=== PATIENT | male | born 1945 | race Caucasian/White ===

== ENCOUNTER 2024-09-07 13:45 | Observation (INO) ==
--- NOTE | 2024-09-07 14:34 | EKG ---
Test Reason : triage room Blood Pressure : */* mmHG Vent. Rate : 80 BPM Atrial Rate : * BPM P-R Int : * ms QRS Dur : 108 ms QT Int : 392 ms P-R-T Axes : * -36 -19 degrees QTc Int : 452 ms Atrial fibrillation Left axis deviation Incomplete right bundle branch block Minimal voltage criteria for LVH, may be normal variant ( R in aVL ) Inferior infarct (cited on or before 05-SEP-2024) Anterior infarct (cited on or before 05-SEP-2024) Abnormal ECG When compared with ECG of 05-SEP-2024 09:51, No significant change was found Confirmed by Papa Monaco MD ([id number]) on 09/08/2024 7:47:03 AM Referred By: Confirmed By: Papa Monaco MD
--- NOTE | 2024-09-07 15:32 | RAD ---
EXAM:CHEST, 1 VIEWHISTORY:DYSPNEA;COMPARISON:April 02, 2020TECHNIQUE:Single frontal viewFINDINGS:The lungs are hypoinflated. There are no consolidating pulmonary infiltrates or pleural fluid collections. There is no radiographic evidence of pneumothorax. Heart size and mediastinal contours are grossly stable accounting for differences in technique and inspiratory effort. The aorta maintains a tortuous configuration.IMPRESSION:Low lung volumes with no consolidating infiltratesTHIS IS AN ELECTRONICALLY VERIFIED FINAL REPORT09/07/2024 3:28 PM - Electronically signed by Sarabjit Henao MD
[2024-09-07 15:50] LABS: BASOPHILS # (AUTO) 0.1 X10^3/uL (0.0-0.1); BASOPHILS % (AUTO) 1.2 % (0.2-1.0); EOSINOPHILS # (AUTO) 0.3 x10^3/uL (0.0-0.2); EOSINOPHILS % (AUTO) 4.3 % (0.9-2.9); HEMATOCRIT 46.9 % (42.0-54.0); HEMOGLOBIN 16.1 g/dL (13.5-18.0); LYMPHOCYTES # (AUTO) 2.2 X10^3/uL (1.3-2.9); LYMPHOCYTES % (AUTO) 34.3 % (21.0-51.0); MEAN CORPUSCULAR HEMOGLOBIN 35.5 pg (27.0-34.0); MEAN CORPUSCULAR HGB CONC 34.4 g/dL (33.0-35.0); MEAN CORPUSCULAR VOLUME 103.2 fL (80.0-100.0); MEAN PLATELET VOLUME 9.6 fL (7.4-11.0); MONOCYTES # (AUTO) 0.7 x10^3/uL (0.3-0.8); MONOCYTES % (AUTO) 11.4 % (0.0-13.0); NEUTROPHILS # (AUTO) 3.1 x10^3/uL (2.2-4.8); NEUTROPHILS % (AUTO) 48.8 % (42.0-75.0); PLATELET COUNT 208 X10^3/uL (150.0-450.0); RED BLOOD COUNT 4.55 X10^6/uL (4.7-6.0); RED CELL DISTRIBUTION WIDTH 13.3 % (11.6-16.5); WHITE BLOOD COUNT 6.3 X10^3/uL (3.6-10.0)
[2024-09-07 16:00] LABS: ALANINE AMINOTRANSFERASE 34 Units/L (12-78); ALBUMIN 3.7 g/dL (3.4-5.0); ALKALINE PHOSPHATASE 37 Units/L (46-116); ASPARTATE AMINO TRANSFERASE 26 Units/L (15-37); BLOOD UREA NITROGEN 21 mg/dL (7-18); CALCIUM 8.8 mg/dL (8.5-10.1); CARBON DIOXIDE 24.9 mmol/L (21-32); CHLORIDE 107 mmol/L (98-107); CREATININE 1.07 mg/dL (0.70-1.30); GLUCOSE 110 mg/dL (65-99); SODIUM 141 mmol/L (136-145); TOTAL PROTEIN 6.8 g/dL (6.4-8.2); eGFR NON BLACK RACES > 60 (>60)
--- NOTE | 2024-09-07 18:16 | DR.GENAD ---
HPI Time Seen Time Seen by Provider: 09/07/24 14:17 PCP Primary Care Physician: raul corbin Complaint/Symptoms Chief Complaint Doctors Comments: 79 yo M, hx HTN, GERD, prior GI bleed, no cardiac hx, had been cleared for lumbar surgery, went to the surgery clinic today, was told to go to the local ER for new-onset afib. Pt unaware that he was in any type of arrhythmia. States he does not feel any different than baseline. Denies any chest pain or dyspnea. Denies other complaints. Chief Complaint:: i was in [place] having back surgery when they discovered that he was having a fib. pt was given choice to see medical care there or to come closer home. pt denies any chest discomfort, or cardiac symptoms. he does have occ sob but that improves rather quickly Self Treatment fo Chief Complaint: came here for services COVID-19 Coronavirus risk:travel/contact w/high risk person: No Has patient experienced Coronavirus symptoms: No Source History Provided: Patient and Family Member Mode of Arrival Mode of Arrival: Ambulatory Timing Onset of Chief Complaint: 09/07/24 PMH PMH Past Medical History: Yes Past Medical History: GERD, Hypertension and Kidney Stones Past Medical History Comment: constipation and gi bleeds Past Surgical History: Yes Surgical History: Abdominal Surgery and Ortho Surgery Family History History of Family Medical Conditions: Yes Family Medical History: Diabetes Mellitus and [place] Family Medical History Comment: colostomy Social History Does patient currently use any type of tobacco product: No Alcohol Use: None Do you use any recreational Drugs:: No Lives With: Alone Lives Where: Home Travel Risk Coronavirus risk:travel/contact w/high risk person: No Has patient experienced Coronavirus symptoms: No Infectious screening In the last 2 months have you had wt loss of >10#?: NO Have you had fever, night sweats or hemotysis?: No Have you traveled outside the country in the last 6 months?: No Travel History Location: has a farm in [place] that came back from in june Isolation: Standard ROS Review of Systems All Other Systems: Reviewed and Negative PE Vital Signs Vitals: Vital Signs Temperature 97.6 F Pulse Rate 67 Pulse Rate 67 Pulse Rate 67 Pulse Rate 68 Pulse Rate 74 Pulse Rate 68 Pulse Rate 79 Pulse Rate 72 Pulse Rate 78 Pulse Rate 78 Pulse Rate 70 Respiratory Rate 17 Respiratory Rate 19 Respiratory Rate 27 Respiratory Rate 30 Respiratory Rate 26 Respiratory Rate 29 Respiratory Rate 32 Respiratory Rate 28 Respiratory Rate 24 Respiratory Rate 24 Respiratory Rate 16 Blood Pressure 150/87 Blood Pressure 136/82 Blood Pressure 128/86 Blood Pressure 118/86 Blood Pressure 132/88 O2 Sat by Pulse Oximetry 95 O2 Sat by Pulse Oximetry 95 O2 Sat by Pulse Oximetry 96 O2 Sat by Pulse Oximetry 95 O2 Sat by Pulse Oximetry 95 O2 Sat by Pulse Oximetry 96 O2 Sat by Pulse Oximetry 96 O2 Sat by Pulse Oximetry 94 O2 Sat by Pulse Oximetry 97 O2 Sat by Pulse Oximetry 96 O2 Sat by Pulse Oximetry 95 General Limitations: No Limitations General Appearance: Alert and In No Apparent Distress Head Head Exam: Normal Inspection Eyes Eye exam: Normal Appearance ENT ENT Exam: Normal Exam External Ear Exam: Normal External Inspection TM/Canal Exam: Bilateral: Normal Nose Exam: Normal Nose Exam Mouth Exam: Normal Inspection Throat Exam: Normal Inspection Neck Neck Exam: Normal Inspection Chest Chest Inspection: Normal Inspection Respiratory Respiratory Exam: Normal Lung Sounds Bilat Respiratory Exam: Bilateral: Clear to Auscultation Cardiovascular Cardiovascular Exam: Regular Rate and Irregular Rhythm; negative Bradycardia or Tachycardia Abdominal Exam Abdominal Exam: Normal Inspection, Normal Bowel Sounds and Soft Extremities Extremities Exam: Normal Inspection Back Back Exam: Normal Inspection Neurologic Neurological Exam: Alert and Oriented X3 Psychiatric Psychiatric Exam: Normal Affect and Normal Mood Skin Skin Exam: Warm, Dry, Intact and Normal Color ROR Labs Reviewed Laboratory Results Reviewed?: Yes 09/07/24 14:38 09/07/24 14:38 Laboratory: WBC 6.3 X10^3/uL (3.6-10.0) 09/07/24 14:38 RBC 4.55 X10^6/uL (4.7-6.0) L 09/07/24 14:38 Hgb 16.1 g/dL (13.5-18.0) 09/07/24 14:38 Hct 46.9 % (42.0-54.0) 09/07/24 14:38 MCV 103.2 fL (80.0-100.0) H 09/07/24 14:38 MCH 35.5 pg (27.0-34.0) H 09/07/24 14:38 MCHC 34.4 g/dL (33.0-35.0) 09/07/24 14:38 RDW 13.3 % (11.6-16.5) 09/07/24 14:38 Plt Count 208 X10^3/uL (150.0-450.0) 09/07/24 14:38 MPV 9.6 fL (7.4-11.0) 09/07/24 14:38 Neut % (Auto) 48.8 % (42.0-75.0) 09/07/24 14:38 Lymph % (Auto) 34.3 % (21.0-51.0) 09/07/24 14:38 [place] % (Auto) 11.4 % (0.0-13.0) 09/07/24 14:38 Eos % (Auto) 4.3 % (0.9-2.9) H 09/07/24 14:38 Baso % (Auto) 1.2 % (0.2-1.0) H 09/07/24 14:38 Neut # (Auto) 3.1 x10^3/uL (2.2-4.8) 09/07/24 14:38 Lymph # (Auto) 2.2 X10^3/uL (1.3-2.9) 09/07/24 14:38 [place] # (Auto) 0.7 x10^3/uL (0.3-0.8) 09/07/24 14:38 Eos # (Auto) 0.3 x10^3/uL (0.0-0.2) H 09/07/24 14:38 Baso # (Auto) 0.1 X10^3/uL (0.0-0.1) 09/07/24 14:38 Absolute Nucleated RBC 0.3 /100WBC 09/07/24 14:38 Sodium 141 mmol/L (136-145) 09/07/24 14:38 Corrected Sodium TNP 09/07/24 14:38 Potassium 4.0 mmol/L (3.5-5.1) 09/07/24 14:38 Chloride 107 mmol/L (98-107) 09/07/24 14:38 Carbon Dioxide 24.9 mmol/L (21-32) 09/07/24 14:38 BUN 21 mg/dL (7-18) H 09/07/24 14:38 Creatinine 1.07 mg/dL (0.70-1.30) 09/07/24 14:38 Est GFR (MDRD) Af Amer > 60 (>60) 09/07/24 14:38 Est GFR (MDRD) Non-Af > 60 (>60) 09/07/24 14:38 Glucose 110 mg/dL (65-99) H 09/07/24 14:38 Calcium 8.8 mg/dL (8.5-10.1) 09/07/24 14:38 Corrected Calcium TNP 09/07/24 14:38 Total Bilirubin 0.70 mg/dL (0.2-1.0) 09/07/24 14:38 AST 26 Units/L (15-37) 09/07/24 14:38 ALT 34 Units/L (12-78) 09/07/24 14:38 Alkaline Phosphatase 37 Units/L (46-116) L 09/07/24 14:38 Creatine Kinase 167 Units/L (39-308) 09/07/24 14:38 Troponin I High Sens 15.2 ng/L (4.0-60.0) 09/07/24 14:38 B-Natriuretic Peptide 149 pg/mL (0-79) H 09/07/24 14:38 Total Protein 6.8 g/dL (6.4-8.2) 09/07/24 14:38 Albumin 3.7 g/dL (3.4-5.0) 09/07/24 14:38 Globulin 3.1 g/dL (2.5-4.5) 09/07/24 14:38 Albumin/Globulin Ratio 1.2 Ratio (1.1-2.1) 09/07/24 14:38 Opioid Opioid Risk Tool Age (Thomas box if 16-45): No History of Preadolescent Sexual Abuse: No Total: 0 Total Score Risk Category: Low Risk Copyright: [facility] predicting aberrant behaviors Discharge Plan Diagnosis Discharge Problem: Atrial fibrillation, new onset Discharge Plan Patient Disposition: 09 ADMITTED INPATIENT Condition: Stable Prescriptions: No Action pilocarpine HCl 5 mg tablet 5 mg PO BID Patient Comments: [NO ORIGINAL SIG] omeprazole 40 mg capsule,delayed release(DR/EC) 40 mg PO BID neomycin-polymyxin B-dexameth 3.5 mg/g-10,000 unit/g-0.1 % ointment 1 applic OPHTHALMIC (EYE) QPM Health Concerns: Post Hospitalization: new medications and changes needed to prevent readmission or further decline. Pt educated and given instructions on all concerns. Plan of Treatment: Pt admitted to Dr Stanford @ 1745PM. Orders to Discharge Patient Discharge Orders: Transfer (Routine); Ordered 09/07/24 Ordered By: Orlando Valero Follow ups/Referrals Follow ups/Referrals: RAUL CORBIN [Primary Care Provider] - 3 days Instructions Stand Alone Forms: Find Help Web Site, Post Hospital Follow Up Care
--- NOTE | 2024-09-07 20:36 | EKG ---
Test Reason : new onset afib Blood Pressure : */* mmHG Vent. Rate : 55 BPM Atrial Rate : * BPM P-R Int : * ms QRS Dur : 114 ms QT Int : 456 ms P-R-T Axes : * -34 -25 degrees QTc Int : 436 ms Atrial fibrillation with slow ventricular response Left axis deviation Right bundle branch block Inferior infarct (cited on or before 05-SEP-2024) Abnormal ECG When compared with ECG of 07-SEP-2024 14:23, (Unconfirmed) Criteria for Anterior infarct are no longer present Confirmed by Papa Monaco MD ([id number]) on 09/08/2024 7:46:08 AM Referred By: Confirmed By: Papa Monaco MD
[2024-09-07 20:42] VITALS: BMI 32.4
[2024-09-07] MEDS ORDERED: DEXAMETHASONE OP SCH (21:00)
[2024-09-07] MEDS ORDERED: [UNRECOGNIZED DRUG - OTHER] OP SCH (21:00)
[2024-09-07] MEDS ORDERED: POLYMYXIN B OP SCH (21:00)
[2024-09-07] MEDS ORDERED: NEOMYCIN OP SCH (21:00)
[2024-09-07] MEDS: [UNRECOGNIZED DRUG - OTHER] AFFEYE SCH (22:52)
[2024-09-07] MEDS: NS 1,000 ML IV 1,000 ML IV SCH (22:52)
--- NOTE | 2024-09-08 01:14 | EKG ---
Test Reason : New onset A-fib Blood Pressure : */* mmHG Vent. Rate : 70 BPM Atrial Rate : * BPM P-R Int : * ms QRS Dur : 116 ms QT Int : 424 ms P-R-T Axes : * -35 -29 degrees QTc Int : 457 ms Atrial fibrillation Left axis deviation Right bundle branch block Inferior infarct (cited on or before 05-SEP-2024) Abnormal ECG When compared with ECG of 07-SEP-2024 20:18, (Unconfirmed) No significant change was found Confirmed by Papa Monaco MD ([id number]) on 09/08/2024 7:45:33 AM Referred By: Confirmed By: Papa Monaco MD
[2024-09-08 03:06] LABS: BASOPHILS # (AUTO) 0.1 X10^3/uL (0.0-0.1); BASOPHILS % (AUTO) 1.3 % (0.2-1.0); EOSINOPHILS # (AUTO) 0.4 x10^3/uL (0.0-0.2); EOSINOPHILS % (AUTO) 5.6 % (0.9-2.9); HEMATOCRIT 44.2 % (42.0-54.0); LYMPHOCYTES % (AUTO) 32.4 % (21.0-51.0); MEAN CORPUSCULAR HEMOGLOBIN 35.1 pg (27.0-34.0); MEAN CORPUSCULAR VOLUME 103.3 fL (80.0-100.0); MEAN PLATELET VOLUME 9.3 fL (7.4-11.0); MONOCYTES # (AUTO) 0.7 x10^3/uL (0.3-0.8); MONOCYTES % (AUTO) 11.3 % (0.0-13.0); NEUTROPHILS # (AUTO) 3.1 x10^3/uL (2.2-4.8); NEUTROPHILS % (AUTO) 49.4 % (42.0-75.0); PLATELET COUNT 177 X10^3/uL (150.0-450.0); RED BLOOD COUNT 4.28 X10^6/uL (4.7-6.0); RED CELL DISTRIBUTION WIDTH 13.7 % (11.6-16.5); WHITE BLOOD COUNT 6.2 X10^3/uL (3.6-10.0)
[2024-09-08 03:10] LABS: INR 1.05 (0.8-1.3)
[2024-09-08 03:33] LABS: ALANINE AMINOTRANSFERASE 30 Units/L (12-78); ALBUMIN 3.2 g/dL (3.4-5.0); ALKALINE PHOSPHATASE 33 Units/L (46-116); ASPARTATE AMINO TRANSFERASE 22 Units/L (15-37); BLOOD UREA NITROGEN 21 mg/dL (7-18); CALCIUM 8.6 mg/dL (8.5-10.1); CARBON DIOXIDE 27.4 mmol/L (21-32); CHLORIDE 107 mmol/L (98-107); CHOL/HDL RATIO 3.5 (0.0-5.0); CHOLESTEROL 162 mg/dL (0-200); COR CA(FOR HYPOALB) 9.2 mg/dL (8.5-10.1); CREATININE 1.05 mg/dL (0.70-1.30); GLUCOSE 98 mg/dL (65-99); HDL CHOLESTEROL 46 mg/dL (40-60); MAGNESIUM 1.7 mg/dL (2.0-2.9); POTASSIUM 4.1 mmol/L (3.5-5.1); SODIUM 141 mmol/L (136-145); TRIGLYCERIDES 106 mg/dL (0-150); eGFR NON BLACK RACES > 60 (>60)
[2024-09-08] MEDS ORDERED: CONSULT PHARMACY - POTASSIUM & MAGNESIUM XX SCH (08:00)
[2024-09-08] MEDS: MAG-OX TAB PO SCH (08:14)
[2024-09-08] MEDS: MILK OF MAGNESIA PO PRN (08:14)
[2024-09-08 08:41] VITALS: RESP 18
[2024-09-08] MEDS: COLACE CAP 100 MG PO SCH (09:11)
--- NOTE | 2024-09-08 10:35 | RAD ---
EXAM:AP chestHISTORY:AFibCOMPARISON:09/07/2024 br.br.br.br pneumonia, CHF/edema or pleural effusion.IMPRESSION:No significant interval change or acute chest abnormality demonstrated.THIS IS AN ELECTRONICALLY VERIFIED FINAL REPORT09/08/2024 10:31 AM - Electronically signed by Aaron Tellez MD
[2024-09-08 10:48] LABS: RETICULOCYTE % 0.58 % (0.8-2.2)
[2024-09-08 11:01] LABS: FREE T4 (FREE THYROXINE) 0.84 ng/dL (0.76-1.46); TSH (3RD GENERATION) 2.411 uIU/mL (0.358-3.74)
[2024-09-08 12:55] VITALS: BP 134/82; PULSE 76; TEMP 98.1; O2SAT 98
== END 2024-09-08 13:50 | disposition home or self-care (01) ==
LOC: ER 13:45 → MED/SURG 13:45
PROVIDERS: ADMIT Internal Medicine; ATTEND Internal Medicine
DX: K21.9 Gastro-esophageal reflux disease without esophagitis; E83.42 Hypomagnesemia; R94.31 Abnormal electrocardiogram [ECG] [EKG]; I10 Essential (primary) hypertension; I48.91 Unspecified atrial fibrillation; R06.02 Shortness of breath